=== PATIENT | female | born 1950 | race Caucasian/White ===

== ENCOUNTER 2016-10-17 02:13 | Emergency (ER) | payer OTHER ==
[~2016-10-17] VITALS: Ht 167.6 cm; Wt 78.4 kg
[~2016-10-17 02:13] MED LIST: ALBU6.7H INH; ASPI81TA17 PO; LEXA10TA PO; MEVA40TA6 PO; NITR.3 SL
[2016-10-17 02:38] VITALS: BP 121/65; PULSE 70; RESP 18; TEMP 97.6; O2SAT 100
[2016-10-17] MEDS ORDERED: AMLO5TAB2 PO (02:38)
[2016-10-17] MEDS ORDERED: LOVA40TA PO (02:38)
[2016-10-17] MEDS ORDERED: ASPI81TA81 (02:38)
[2016-10-17] MEDS ORDERED: LOSA50TA PO (02:38)
--- NOTE | 2016-10-17 03:20 | PD ---
HPI Chief Complaint: Respiratory Symptoms Time Seen by Provider: 03:14 Travel History International Travel<30 days: No Contact w/Intl Traveler<30days: No Traveled to known affect area: No History of Present Illness HPI The patient is a 66-year-old female with a history of anxiety who changed her medicine slightly, cutting back on amlodipine and adding losartan. She says that she had some difficulty breathing today for a brief period of time but her oximetry is 100%. The patient, while she was having some symptoms, did record a oximetry of 100%. Her vital signs are normal despite these symptoms. She does have a history of panic attacks and used to be on lorazepam. She denies any vertigo. She states she knows what vertigo is and she has not had that. She denies any history of lung problems like COPD and states that her only heart problem is some slightly leaky valves. She denies any history of congestive heart failure. PFSH Past Medical History Anxiety: Yes Cardiovascular Problems: Yes High Cholesterol: Yes Chest Pain: Yes (CHEST PRESSURE) Diminished Hearing: No Hypertension: Yes Immunizations Current: Yes Tetanus Vaccination: Unknown Influenza Vaccination: Yes ?: Not Menopausal: Yes Past Surgical History Abdominal Surgery: Yes (childhood for cycts and abscess) Appendectomy: Yes Hysterectomy: Yes (PARTIAL) Social History Alcohol Use: Yes (OCCASIONAL) Tobacco Use: No Substance Use: No Allergies-Medications (Allergen,Severity, Reaction): Coded Allergies: Codeine (Verified Allergy, Severe, 10/17/16) Reported Meds & Prescriptions Reported Meds & Active Scripts Active Reported Lovastatin 40 Mg Tab 40 Mg PO DAILY Aspir-81 (Aspirin) 81 Mg Tabdr Amlodipine (Amlodipine Besylate) 5 Mg Tab 5 Mg PO DAILY Losartan (Losartan Potassium) 50 Mg Tab 50 Mg PO DAILY Review of Systems Except as stated in HPI: all other systems reviewed are Neg Physical Exam Narrative GENERAL: Well-nourished, well-developed patient who appears anxious. Her vital signs are normal. Oximetry is 100% on room air. SKIN: Warm and dry. No neck vein distention is present. HEAD: Normocephalic. EYES: No scleral icterus. No injection or drainage. NECK: Supple, trachea midline. No JVD or lymphadenopathy. CARDIOVASCULAR: Regular rate and rhythm without murmurs, gallops, or rubs. RESPIRATORY: Breath sounds equal bilaterally. No accessory muscle use. Lungs clear to auscultation bilaterally. GASTROINTESTINAL: Abdomen soft, non-tender, nondistended. MUSCULOSKELETAL: No cyanosis, or edema. BACK: Nontender without obvious deformity. No CVA tenderness. Data Data Last Documented VS Vital Signs Date Time Temp Pulse Resp B/P Pulse Ox O2 Delivery O2 Flow Rate FiO2 10/17/16 02:42 70 18 100 Room Air 10/17/16 02:38 97.6 121/65 MDM Medical Decision Making Medical Screen Exam Complete: Yes Emergency Medical Condition: Yes Medical Record Reviewed: Yes Differential Diagnosis Acute coronary syndromehighly unlikely, allergic reactionhighly unlikely, panic attack, COPD, congestive heart failure, reaction to medication Narrative Course The patient has a panic attack. He has completely resolved and she feels fine at this time. Her oximetry remains at 100% and her lungs are clear. Diagnosis Primary Impression: Anxiety reaction Additional Instructions: As we discussed, call Dr. Du later on this morning and tell him what happened. I think you had a panic attack. I do not think it is a medication reaction but that is what he will need to decide. Med/Other Pt SpecificInfo: No Change to Meds Disposition: 01 DISCHARGE HOME Condition: Stable Dave Barnett MD Oct 17, 2016 03:20
[2016-10-17 03:39] VITALS: BP 139/74
== END 2016-10-17 03:40 | disposition home or self-care (01) ==
LOC: PHED 02:13
DX: F41.0 Panic disorder [episodic paroxysmal anxiety] (principal)
CPT/HCPCS: 99283